=== PATIENT | male | born 2000 | race Caucasian/White ===

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

== ENCOUNTER 2019-04-03 06:39 | Emergency (ER) | payer BC ==
[~2019-04-03] VITALS: Ht 180.3 cm; Wt 124.7 kg
--- OUTSIDE RECORDS SUMMARY | ~2019-04-03 | XMS ---
Demographics + + + | Address | [address] | | | [place] [address] | + + + | Home Phone | | + + + | Preferred Language | Unknown | + + + | Marital Status | Never | + + + | Gnosticist Affiliation | Unknown | + + + | Race | White | + + + | Ethnic Group | Not or | + + + Author + + + | Author | [facility] | + + + | Organization | [facility] | + + + | Address | [address] | | | [place] [address] | + + + | Phone | | + + + Care Team Providers + + + + | Care Utility Teller Name | Role | Phone | + + + + | Jackelyn Bishop PCP | | + + + + | Glenn Bishopa Antonio | PreferredProvider | | + + + + Allergies and Adverse Reactions + + +-------+ | Name | Reaction | Notes | + + +-------+ | amoxicillin | vomit, lips swell | | + + +-------+ Plan of Treatment Not available. Medications +--------+ | Active | +--------+ + + + + + + | Name | Start Date | Estimated | SIG | Comments | | | | Completion Date | | | + + + + + + | desmopressin | 10/04/2011 | | take 1 tablet | Mamie Barker | | Oral tablet 0.2 | | | by oral route | | | mg | | | QD at hs | | + + + + + + +---------+ | | +---------+ + + + + + + | Name | Start Date | Expiration Date | SIG | Comments | + + + + + + | azithromycin | 06/05/2012 | 06/10/2012 | take 2 tablets | | | Oral tablet 250 | | | (500 mg) by | | | mg | | | oral route once | | | | | | daily for 1 | | | | | | day then 1 | | | | | | tablet (250 mg) | | | | | | by oral route | | | | | | once daily for | | | | | | 4 days | | + + + + + + | clindamycin | 06/05/2012 | 01/01/2013 | apply to | | | phosphate | | | affected area | | | Topical | | | by topical | | | Solution 1 % | | | route 2 times a | | | | | | day for 30 | | | | | | days | | + + + + + + | acyclovir oral | 06/25/2013 | 06/30/2013 | take 1 tablet | | | tablet 800 mg | | | by oral route | | | | | | BID for 5 days | | + + + + + + | fluticasone | 09/11/2013 | 09/06/2014 | inhale 1-2 | | | nasal | | | sprays by nasal | | | spray,suspensio | | | route to each | | | n 50 | | | nare QD | | | mcg/actuation | | | | | + + + + + + Problem List + +--------+ + | Description | Status | Onset | + +--------+ + | Acne | Active | 06/05/2012 | + +--------+ + | Eustachian tube dysfunction | Active | 09/11/2013 | + +--------+ + | Finger sprain | Active | 05/02/2017 | + +--------+ + | Immunization deficiency | Active | 05/02/2017 | + +--------+ + | Smoker | Active | 05/02/2017 | + +--------+ + | Obesity | Active | 05/02/2017 | + +--------+ + Vital Signs +-----+-----+-----+-----+-----+-----+-----+-----+-----+----+-----+-----+-----+-----+ | Jose | Jonatan | BP- | BP- | HR( | RR( | Tem | WT | HT | HC | BMI | BSA | BMI | O2 | | e | e | Sys | Alejandra | bpm | rpm | p | | | | | | | Sat | | | | (mm | (mm | ) | ) | | | | | | | Per | (%) | | | | [Hg | [Hg | | | | | | | | | sara | | | | | ] | ]) | | | | | | | | | til | | | | | | | | | | | | | | | e | | +-----+-----+-----+-----+-----+-----+-----+-----+-----+----+-----+-----+-----+-----+ | 10/ | 9:4 | 120 | 70 | 68 | 30 | 97. | 283 | 71 | | 39. | 2.5 | 99. | 98 | | 30/ | 7:0 | | mmH | bpm | rpm | 2 F | | in | | 47 | 4 | 6 % | % | | 201 | 0 | mmH | g | | | | lbs | | | kg/ | m2 | | | | 7 | AM | g | | | | | | | | m2 | | | | +-----+-----+-----+-----+-----+-----+-----+-----+-----+----+-----+-----+-----+-----+ | 3/1 | 3:0 | 128 | 70 | 70 | 18 | 98. | 280 | 69. | | 41. | 2.4 | 99. | 98 | | 1/2 | 1:0 | | mmH | bpm | rpm | 5 F | | 2 | | 109 | 902 | 6 % | % | | 014 | 0 | mmH | g | | | | lbs | in | | 7 | | | | | | PM | g | | | | | | | | kg/ | m | | | | | | | | | | | | | | m | | | | +-----+-----+-----+-----+-----+-----+-----+-----+-----+----+-----+-----+-----+-----+ | 12/ | 10: | 140 | 76 | 110 | 20 | 97. | 272 | 68. | | 40. | 2.4 | 99. | 98 | | 23/ | 35: | | mmH | | rpm | 8 F | .5 | 9 | | 36 | 5 | 6 % | % | | 201 | 00 | mmH | g | bpm | | | lbs | in | | kg/ | m2 | | | | 3 | AM | g | | | | | | | | m2 | | | | +-----+-----+-----+-----+-----+-----+-----+-----+-----+----+-----+-----+-----+-----+ | 12/ | 1:0 | 124 | 74 | 73 | 18 | 97. | 238 | 67. | | 36. | 2.2 | 99. | 98 | | 3/2 | 3:0 | | mmH | bpm | rpm | 9 F | | 3 | | 944 | 641 | 4 % | % | | 012 | 0 | mmH | g | | | | lbs | in | | 1 | | | | | | PM | g | | | | | | | | kg/ | m | | | | | | | | | | | | | | m | | | | +-----+-----+-----+-----+-----+-----+-----+-----+-----+----+-----+-----+-----+-----+ Social History + + + + | Name | Description | Comments | + + + + | Adopted | | | + + + + | Lives With | | 06/06/2012 - marilyn Monge - | | | | dad Quintin | + + + + History of Procedures + + + + | Date Ordered | Description | Order Status | + + + + | 06/05/2012 12:00 AM | MENINGOCOCCAL VACCINE IM | Reviewed | + + + + | 06/05/2012 12:00 AM | MEASURE BLOOD OXYGEN LEVEL | Reviewed | + + + + | 06/05/2012 12:00 AM | IMMUNIZATION ADMIN | Reviewed | + + + + | 09/11/2013 12:00 AM | MEASURE BLOOD OXYGEN LEVEL | Reviewed | + + + + | 06/25/2013 12:00 AM | IMMUNE ADMIN ORAL/NASAL | Reviewed | + + + + | 06/25/2013 12:00 AM | MEASURE BLOOD OXYGEN LEVEL | Reviewed | + + + + | 06/25/2013 12:00 AM | FLU VACCINE 4 VALENT NASAL | Reviewed | + + + + Results Summary Not available. History Of Immunizations +-------+-------+-------+------+-------+-------+-------+-------+-------+-------+-----+ | Name | Date | Mfg | Mfg | Trade | Lot# | Route | Inj | Vis | Vis | CVX | | | Admin | Name | Code | Name | | | | Given | Pub | | +-------+-------+-------+------+-------+-------+-------+-------+-------+-------+-----+ | Rotav | 07/29/ | Not | NE | Not | | Not | Not | | | 999 | | irus | 1999 | Enter | | Enter | | Enter | Enter | 001 | 001 | | | | | ed | | ed | | ed | ed | | | | +-------+-------+-------+------+-------+-------+-------+-------+-------+-------+-----+ | Rotav | 09/26/ | Not | NE | Not | | Not | Not | | | 999 | | irus | 2000 | Enter | | Enter | | Enter | Enter | 001 | 001 | | | | | ed | | ed | | ed | ed | | | | +-------+-------+-------+------+-------+-------+-------+-------+-------+-------+-----+ | Rotav | 06/05/ | Not | NE | Not | | Not | Not | | | 999 | | irus | 2011 | Enter | | Enter | | Enter | Enter | 001 | 001 | | | | | ed | | ed | | ed | ed | | | | +-------+-------+-------+------+-------+-------+-------+-------+-------+-------+-----+ | DTaP | 08/18/ | Not | NE | Not | | Not | Not | | | 999 | | | 1999 | Enter | | Enter | | Enter | Enter | 001 | 001 | | | | | ed | | ed | | ed | ed | | | | +-------+-------+-------+------+-------+-------+-------+-------+-------+-------+-----+ | DTaP | 10/19/ | Not | NE | Not | | Not | Not | | | 999 | | | 2000 | Enter | | Enter | | Enter | Enter | 001 | 001 | | | | | ed | | ed | | ed | ed | | | | +-------+-------+-------+------+-------+-------+-------+-------+-------+-------+-----+ | DTaP | | Not | NE | Not | | Not | Not | | | 999 | | | 000 | Enter | | Enter | | Enter | Enter | 001 | 001 | | | | | ed | | ed | | ed | ed | | | | +-------+-------+-------+------+-------+-------+-------+-------+-------+-------+-----+ | DTaP | 09/20/ | Not | NE | Not | | Not | Not | | | 999 | | | 2001 | Enter | | Enter | | Enter | Enter | 001 | 001 | | | | | ed | | ed | | ed | ed | | | | +-------+-------+-------+------+-------+-------+-------+-------+-------+-------+-----+ | DTaP | 09/15/ | Not | NE | Not | | Not | Not | | | 999 | | | 2005 | Enter | | Enter | | Enter | Enter | 001 | 001 | | | | | ed | | ed | | ed | ed | | | | +-------+-------+-------+------+-------+-------+-------+-------+-------+-------+-----+ | Hib | 08/18/ | Not | NE | Not | | Not | Not | 0 | 0 | 999 | | | 2000 | Enter | | Enter | | Enter | Enter | 001 | 001 | | | | | ed | | ed | | ed | ed | | | | +-------+-------+-------+------+-------+-------+-------+-------+-------+-------+-----+ | Hib | 10/19/ | Not | NE | Not | | Not | Not | 0 | 0 | 999 | | | 2000 | Enter | | Enter | | Enter | Enter | 001 | 001 | | | | | ed | | ed | | ed | ed | | | | +-------+-------+-------+------+-------+-------+-------+-------+-------+-------+-----+ | Hib | | Not | NE | Not | | Not | Not | 0 | 0 | 999 | | | 000 | Enter | | Enter | | Enter | Enter | 001 | 001 | | | | | ed | | ed | | ed | ed | | | | +-------+-------+-------+------+-------+-------+-------+-------+-------+-------+-----+ | Hib | 09/20/ | Not | NE | Not | | Not | Not | | | 999 | | | 2001 | Enter | | Enter | | Enter | Enter | 001 | 001 | | | | | ed | | ed | | ed | ed | | | | +-------+-------+-------+------+-------+-------+-------+-------+-------+-------+-----+ | HepB | 08/18/ | Not | NE | Not | | Not | Not | | | 999 | | | 1999 | Enter | | Enter | | Enter | Enter | 001 | 001 | | | | | ed | | ed | | ed | ed | | | | +-------+-------+-------+------+-------+-------+-------+-------+-------+-------+-----+ | HepB | 10/19/ | Not | NE | Not | | Not | Not | | | 999 | | | 2000 | Enter | | Enter | | Enter | Enter | 001 | 001 | | | | | ed | | ed | | ed | ed | | | | +-------+-------+-------+------+-------+-------+-------+-------+-------+-------+-----+ | HepB | | Not | NE | Not | | Not | Not | | | 999 | | | 000 | Enter | | Enter | | Enter | Enter | 001 | 001 | | | | | ed | | ed | | ed | ed | | | | +-------+-------+-------+------+-------+-------+-------+-------+-------+-------+-----+ | HepB | 09/20/ | Not | NE | Not | | Not | Not | | | 999 | | | 2001 | Enter | | Enter | | Enter | Enter | 001 | 001 | | | | | ed | | ed | | ed | ed | | | | +-------+-------+-------+------+-------+-------+-------+-------+-------+-------+-----+ | IPV | 08/18/ | Not | NE | Not | | Not | Not | | | 999 | | | 2000 | Enter | | Enter | | Enter | Enter | 001 | 001 | | | | | ed | | ed | | ed | ed | | | | +-------+-------+-------+------+-------+-------+-------+-------+-------+-------+-----+ | IPV | 10/19/ | Not | NE | Not | | Not | Not | | | 999 | | | 2000 | Enter | | Enter | | Enter | Enter | 001 | 001 | | | | | ed | | ed | | ed | ed | | | | +-------+-------+-------+------+-------+-------+-------+-------+-------+-------+-----+ | IPV | | Not | NE | Not | | Not | Not | | | 999 | | | 000 | Enter | | Enter | | Enter | Enter | 001 | 001 | | | | | ed | | ed | | ed | ed | | | | +-------+-------+-------+------+-------+-------+-------+-------+-------+-------+-----+ | IPV | 09/15/ | Not | NE | Not | | Not | Not | | | 999 | | | 2005 | Enter | | Enter | | Enter | Enter | 001 | 001 | | | | | ed | | ed | | ed | ed | | | | +-------+-------+-------+------+-------+-------+-------+-------+-------+-------+-----+ | MMR | 06/07/ | Not | NE | Not | | Not | Not | | | 999 | | | 2000 | Enter | | Enter | | Enter | Enter | 001 | 001 | | | | | ed | | ed | | ed | ed | | | | +-------+-------+-------+------+-------+-------+-------+-------+-------+-------+-----+ | MMR | 09/15/ | Not | NE | Not | | Not | Not | | | 999 | | | 2005 | Enter | | Enter | | Enter | Enter | 001 | 001 | | | | | ed | | ed | | ed | ed | | | | +-------+-------+-------+------+-------+-------+-------+-------+-------+-------+-----+ | Varic | 06/07/ | Not | NE | Not | | Not | Not | | | 999 | | jenny | 1999 | Enter | | Enter | | Enter | Enter | 001 | 001 | | | | | ed | | ed | | ed | ed | | | | +-------+-------+-------+------+-------+-------+-------+-------+-------+-------+-----+ | Varic | 08/03/ | Not | NE | Not | | Not | Not | | | 999 | | jenny | 2007 | Enter | | Enter | | Enter | Enter | 001 | 001 | | | | | ed | | ed | | ed | ed | | | | +-------+-------+-------+------+-------+-------+-------+-------+-------+-------+-----+ | Hep A | 10/18/ | Not | NE | Not | | Not | Not | | | 999 | | | 2002 | Enter | | Enter | | Enter | Enter | 001 | 001 | | | | | ed | | ed | | ed | ed | | | | +-------+-------+-------+------+-------+-------+-------+-------+-------+-------+-----+ | Hep A | 05/24 | Not | NE | Not | | Not | Not | | | 999 | | | /2002 | Enter | | Enter | | Enter | Enter | 001 | 001 | | | | | ed | | ed | | ed | ed | | | | +-------+-------+-------+------+-------+-------+-------+-------+-------+-------+-----+ | Prevn | 07/29/ | Not | NE | Not | | Not | Not | | | 999 | | ar | 2000 | Enter | | Enter | | Enter | Enter | 001 | 001 | | | | | ed | | ed | | ed | ed | | | | +-------+-------+-------+------+-------+-------+-------+-------+-------+-------+-----+ | Prevn | 09/26/ | Not | NE | Not | | Not | Not | | | 999 | | ar | 1999 | Enter | | Enter | | Enter | Enter | 001 | 001 | | | | | ed | | ed | | ed | ed | | | | +-------+-------+-------+------+-------+-------+-------+-------+-------+-------+-----+ | Prevn | 11/26/ | Not | NE | Not | | Not | Not | | | 999 | | ar | 2000 | Enter | | Enter | | Enter | Enter | 001 | 001 | | | | | ed | | ed | | ed | ed | | | | +-------+-------+-------+------+-------+-------+-------+-------+-------+-------+-----+ | Prevn | 06/05/ | Not | NE | Not | | Not | Not | | | 999 | | ar | 2011 | Enter | | Enter | | Enter | Enter | 001 | 001 | | | | | ed | | ed | | ed | ed | | | | +-------+-------+-------+------+-------+-------+-------+-------+-------+-------+-----+ | Tdap | 08/19/ | Not | NE | Not | | Not | Not | | | 115 | | | 2010 | Enter | | Enter | | Enter | Enter | 001 | 001 | | | | | ed | | ed | | ed | ed | | | | +-------+-------+-------+------+-------+-------+-------+-------+-------+-------+-----+ | Flu | 08/03/ | Not | NE | Not | | Not | Not | | | 999 | | 3+ | 2007 | Enter | | Enter | | Enter | Enter | 001 | 001 | | | years | | ed | | ed | | ed | ed | | | | +-------+-------+-------+------+-------+-------+-------+-------+-------+-------+-----+ | FluMi | | Not | NE | Not | | Not | Not | | | 999 | | st | 008 | Enter | | Enter | | Enter | Enter | 001 | 001 | | | | | ed | | ed | | ed | ed | | | | +-------+-------+-------+------+-------+-------+-------+-------+-------+-------+-----+ | FluMi | 02/10/ | Not | NE | Not | | Not | Not | | | 999 | | st | 2008 | Enter | | Enter | | Enter | Enter | 001 | 001 | | | | | ed | | ed | | ed | ed | | | | +-------+-------+-------+------+-------+-------+-------+-------+-------+-------+-----+ | Flu | 03/16/ | Not | NE | Not | | Not | Not | | | 141 | | 3+ | 2011 | Enter | | Enter | | Enter | Enter | 001 | 001 | | | years | | ed | | ed | | ed | ed | | | | +-------+-------+-------+------+-------+-------+-------+-------+-------+-------+-----+ | Menac | 06/05/ | sanof | PMC | Menac | [id number] | Intra | Left | 06/05/ | 04/16 | 136 | | tra | 2011 | i | | tra | AA | muscu | Delto | 2011 | | | | | | paste | | | | lar | id | | | | | | | ur | | | | | | | | | +-------+-------+-------+------+-------+-------+-------+-------+-------+-------+-----+ | FluMi | 06/25 | Medim | MED | Flu-N | [id number] | Intra | None | 06/25 | 01/26/ | 111 | | st | | mune, | | angely | 9 | nasal | | | 2012 | | | | | Inc. | | | | | | | | | +-------+-------+-------+------+-------+-------+-------+-------+-------+-------+-----+ History of Past Illness + + + + | Name | Date of Onset | Comments | + + + + | Sinusitis, Acute | 06/05/2012 | | + + + + | Acne | 06/05/2012 | | + + + + | Obesity | | | + + + + | Vision problems | | | + + + + | Herpes Simplex | 06/25/2013 | | + + + + | Viremia | 06/25/2013 | | + + + + | Eustachian tube dysfunction | 09/11/2013 | | + + + + | Menactra 11 & UP | Jun 05 2012 1:04PM | | + + + + | Sinusitis, Acute | Jun 05 2012 1:04PM | | + + + + | Acne | Jun 05 2012 1:04PM | | + + + + | Finger sprain | 05/02/2017 | | + + + + | Immunization deficiency | 05/02/2017 | | + + + + | Smoker | 05/02/2017 | | + + + + | Obesity | 05/02/2017 | | + + + + | Influenza Nasal | Jun 25 2013 10:23AM | | + + + + | Herpes Simplex | Jun 25 2013 10:23AM | | + + + + | Viremia Improving | Jun 25 2013 10:23AM | | + + + + | Bilateral Eustachian Tube | Sep 11 2013 2:52PM | | | Dysfunction | | | + + + + | Finger sprain | May 02 2017 9:35AM | | + + + + | Obesity | May 02 2017 9:35AM | | + + + + | Smoker | May 02 2017 9:35AM | | + + + + | Immunization deficiency | May 02 2017 9:35AM | | + + + + Payers + + + +--------+ +---------+ + | Insurance | Company | Plan Name | Plan | Policy | Policy | Start Date | | Name | Name | | Number | Number | Group | | | | | | | | Number | | + + + +--------+ +---------+ + | | Blue | BLUE CROSS | | [id number] | | N/A | | | Cross | BLUE CARD | | 9W | | | | | Blue | | | | | | | | Shield | | | | | | + + + +--------+ +---------+ + History of Encounters + + + + | Visit Date | Visit Type | Provider | + + + + | 05/02/2017 | New Patient | Jackelyn Bishop MD | + + + + | 09/11/2013 | Acute Illness | Jennifer Lu MD | + + + + | 06/25/2013 | Office Visit | Jackelyn Bishop MD | + + + + | 06/05/2012 | Same Day Appt | Jackelyn Bishop MD | + + + +"
--- OUTSIDE RECORDS SUMMARY | ~2019-04-03 | XMS ---
Demographics + + + | Address | [address] | | | [place] [address] | + + + | Home Phone | | + + + | Preferred Language | Unknown | + + + | Marital Status | Never | + + + | Gnosticism Affiliation | Unknown | + + + | Race | White | + + + | Ethnic Group | Not or | + + + Author + + + | Author | [facility] | + + + | Organization | [facility] | + + + | Address | [address] | | | [place] [address] | + + + | Phone | | + + + Care Team Providers + + + + | Care Fitness Supervisor Name | Role | Phone | + [...] + + + + + + | cefprozil 500 | 10/03/2017 | 10/13/2017 | take 1 tablet | | | mg oral tablet | | | (500 mg) by | | | | | | oral route | | | | | | every 12 hours | | | | | | for 10 days | | + + + + [...] | | e | | +-----+-----+-----+-----+-----+-----+-----+-----+-----+----+-----+-----+-----+-----+ | 4/2 | 1:4 | | | 77 | 28 | 98 | 273 | 71 | | 38. | 2.4 | 99. | 98 | | /20 | 4:0 | | | bpm | rpm | F | | in | | 075 | 906 | 5 % | % | | 18 | 0 | | | | | | lbs | | | 4 | | | | | | PM | | | | | | | | | kg/ | m | | | | | | | | | | | | | | m | | | | +-----+-----+-----+-----+-----+-----+-----+-----+-----+----+-----+-----+-----+-----+ | 10/ | 9:4 [...] | Lives With | | 06/06/2012 - mom Mariposa - | | | | dad Quintin [...] Reviewed | + + + + | 10/03/2017 1:45 PM | IAADIADOO STREPTOCOCCUS | Reviewed | | | GROUP A | | + + + + | 10/03/2017 12:00 AM | MEASURE BLOOD OXYGEN LEVEL | Reviewed | + + + + Results Summary + + + | Date and Description | Results | + + + | 04/13/2017 1:00 AM | Hospital/ER[facility]Urgent Care Diagnosis rt 4th | | | finger dislocation Hospital[facility] | | | Treatment corrected in ER. f/u prn. | | | Inactive pt | + + + | 10/03/2017 1:52 PM | Strep Test Negative | + + + History Of Immunizations +-------+-------+-------+------+-------+-------+-------+-------+-------+-------+-----+ | Name | [...] | | 999 | | jenny | 2000 | Enter | | Enter [...] | | | 999 | | | 2003 | Enter | | Enter | | [...] | | | 115 | | | 2009 | Enter | | Enter | | Enter | Enter | 001 | 001 | | | | | ed | | ed | | ed | ed | | | | +-------+-------+-------+------+-------+-------+-------+-------+-------+-------+-----+ | Flu | 08/03/ | Not | NE | Not | | Not | Not | | | 999 | | 3+ | 2008 | Enter | | Enter [...] | 06/05/ | sanof | PMC | MENAC | [id number] | Intra | Left | 06/05/ | 04/16 | 136 | | tra | 2011 | i | | TRA | AA | muscu | Delto | [...] 06/25 | 01/26/ | 111 | | | | mune, | | angely | [...] | + + + + | Herpes simplex | 06/25/2013 | | + + + [...] | | + + + + | Otitis Media, Bilateral | Oct 03 2017 1:35PM | | + + + + | Pharyngitis, Acute | Oct 03 2017 1:35PM | | + + + + Payers [...] | Blue | BLUE CROSS | | [id number] | | N/A | | | Cross | BLUE CARD | | 9W | | | | | Blue | | | | | | | | Shield | | | | | | + + + +--------+ +---------+ + History of Encounters + + + + | Visit Date | Visit Type | Provider | + + + + | 10/03/2017 | Day Appt | Jackelyn Bishop MD | + + + + | 05/02/2017 [...]
--- OUTSIDE RECORDS SUMMARY | ~2019-04-03 | XMS ---
Demographics + + + | Address | [address] | | | [place] [address] | + + + | Home Phone | | + + + | Preferred Language | Unknown | + + + | Marital Status | Never | + + + | Voodoo Affiliation | Unknown | + + + | Race | White | + + + | Ethnic Group | Not or | + + + Author + + + | Author | [facility] | + + + | Organization | [facility] | + + + | Address | [address] | | | [place] [address] | + + + | Phone | | + + + Care Team Providers + + + + | Care Cable Lacer Name | Role | Phone | + + + + | Jackelyn Bishop PCP | | + + + + | Debbietrixie Jackelyn Antonio | PreferredProvider | | + + + + Allergies and Adverse Reactions + + + + | Name | Reaction | Notes | + + + + | amoxicillin | vomit, lips swell | | + + + + | PENICILLINS | Other | - [employer]rees[employer] 06/05/2018 | + + + + | No Known Food or | | - [employer]rees[employer] 06/05/2018 | | Environmental Allergies | | | + + + + Plan of Treatment Not available. Medications +--------+ [...] + + + | cefprozil 500 | 06/05/2018 | 06/15/2018 | take 1 tablet | | | [...] | 05/02/2017 | + +--------+ + | Marijuana smoker, | Active | 06/05/2018 | | continuous | | | + +--------+ + Vital Signs +-----+-----+-----+-----+-----+-----+-----+-----+-----+----+-----+-----+-----+-----+ [...] | | e | | +-----+-----+-----+-----+-----+-----+-----+-----+-----+----+-----+-----+-----+-----+ | 12/ | 11: | 160 | 82 | 86 | 28 | 97. | 276 | | | | | | 99 | | 3/2 | 28: | | mmH | bpm | rpm | 6 F | .5 | | | | | | % | | 018 | 00 | mmH | g | | | | lbs | | | | | | | | | AM | g | | | | | | | | | | | | +-----+-----+-----+-----+-----+-----+-----+-----+-----+----+-----+-----+-----+-----+ | 4/2 | 1:4 [...] Comments | + + + + | Tobacco | Former smoker | - [employer]rees[employer] 06/05/2018 | + + + + | Exercises Daily | | - [employer]rees[employer] 06/05/2018 | + + + + | In High School | | - [employer] 06/05/2018 | + + + + | Marijuana | | uses CBD and some THC for | | | | anxiety and poor appetite | + + + + | Adopted [...] Reviewed | + + + + | 06/05/2018 12:00 AM | MEASURE BLOOD OXYGEN LEVEL [...] | Not | Not | 0 | | 999 | | | 2000 | Enter | | Enter | | Enter | Enter | 001 | 001 | | | | | ed | | ed | | ed | ed | | | | +-------+-------+-------+------+-------+-------+-------+-------+-------+-------+-----+ | Hib | | Not | NE | Not | | Not | Not | 0 | | 999 | | | 000 | Enter | | Enter | | Enter | Enter | 001 | 001 | | | | | ed | | ed | | ed | ed | | | | +-------+-------+-------+------+-------+-------+-------+-------+-------+-------+-----+ | Hib | 09/20/ | Not | NE | Not | | Not | Not | 0 | | 999 | | | 2001 [...] | | 999 | | st | 2009 | Enter | | Enter [...] | + + + + | Menactra & UP | Jun 05 2012 1:04PM [...] | | + + + + | Anxiety | | - [employer] 06/05/2018 | + + + + | Depression | | - [employer] 06/05/2018 | + + + + | Dizziness | | - [employer] 06/05/2018 | + + + + | Eating disorder, | | - [employer] 06/05/2018 | | unspecified | | | + + + + | Marijuana smoker, | 06/05/2018 | | | continuous | | | + + + + [...] + | Sinusitis, Acute | Jun 05 2018 11:22AM | | + + + + | Bronchitis | Jun 05 2018 11:22AM | | + + + + | Obesity | Jun 05 2018 11:22AM | | + + + + | Marijuana smoker, | Jun 05 2018 11:22AM | | | continuous | | | + + + + Payers [...] | Blue | BLUE CROSS | | [id number] | | N/A | | | Cross | BLUE CARD | | [id number] | | | | | Blue | | | | | | | | Shield | | | | | | + + + +--------+ +---------+ + History of Encounters + + + + | Visit Date | Visit Type | Provider | + + + + | 06/05/2018 | Same Day Appt | Jackelyn Bishop MD | + + + + | 10/03/2017 | Same Day Appt | Jackelyn Bishop [...]
--- OUTSIDE RECORDS SUMMARY | ~2019-04-03 | XMS ---
Demographics + + + | Address | [address] | | | [place] [address] | + + + | Home Phone | | + + + | Preferred Language | Unknown | + + + | Marital Status | Never | + + + | Lutheran Affiliation | Unknown | + + + | Race | White | + + + | Ethnic Group | Not or | + + + Author + + + | Author | [facility] | + + + | Organization | [facility] | + + + | Address | [address] | | | [place] [address] | + + + | Phone | | + + + Care Team Providers + + + + | Care Transportation Associate Name | Role | Phone | + [...] | | | 999 | | | 2004 | Enter | | Enter | | [...] | | + + + + | [employer] | Jun 05 2012 1:04PM | | + + + + | Sinusitis, Acute | Jun 05 2012 1:04PM | | + + + + | Acne | Jun 05 2012 1:04PM | | + + + + | Finger joyceain | 05/02/2017 | | + + + [...] | Blue | BLUE CROSS | | [id number] | | N/A | | | Cross [...]
[2019-04-03] MEDS ORDERED: VENTOLIN HFA18 GM INH (07:08)
[2019-04-03] MEDS ORDERED: ZITHROMAX250 MG PO (07:08)
== END 2019-04-03 07:40 | disposition home or self-care (01) ==
LOC: ED 06:39
DX: J06.9 Acute upper respiratory infection, unspecified (principal); F17.200 Nicotine dependence, unspecified, uncomplicated; Z88.0 Allergy status to penicillin
CPT/HCPCS: 94640; 99283; 99406

== ENCOUNTER 2020-02-08 03:57 | Emergency (ER) | payer BC ==
[~2020-02-08] VITALS: Ht 180.3 cm; Wt 131.5 kg
[~2020-02-08 03:57] MED LIST: VENTOLIN HFA18 GM INH; ZITHROMAX250 MG PO
[2020-02-08] MEDS ORDERED: FAMOTIDINE40 MG PO (04:37)
[2020-02-08] MEDS ORDERED: CETIRIZINE HCL10 MG PO (04:37)
== END 2020-02-08 04:43 | disposition home or self-care (01) ==
LOC: ED 03:57
DX: L50.0 Allergic urticaria (principal); Z88.0 Allergy status to penicillin; Z87.891 Personal history of nicotine dependence; Z88.1 Allergy status to other antibiotic agents
CPT/HCPCS: 99282